=== PATIENT | female | born 1975 | race African-American/Black ===

== ENCOUNTER → 2017-10-11 | Outpatient (CLI) | payer SELFPAY ==
[2017-10-11 11:26] LABS: MEAN CELL VOLUME 86 fl (80.0-100.0); MEAN CORPUSCULAR HGB CONC 32 g/dl (33.0-37.0); MEAN PLATELET VOLUME 9.7 fl (7.4-10.4); PLATELET COUNT 209 K/mm3 (130-400); RED BLOOD COUNT 4.03 M/mm3 (4.10-5.30); REDCELL DISTRIBUTION WIDTH-CV 13.8 % (11.5-14.5)
[2017-10-11 11:27] LABS: HEMATOCRIT 34.8 % (37.0-47.0); HEMOGLOBIN 11.2 g/dl (12.5-16.0); MEAN CORPUSCULAR HEMOGLOBIN 28 pg (27.0-31.0)
[2017-10-11 11:40] LABS: ALBUMIN 4.2 gm/dL (3.5-5.0); BILIRUBIN,TOTAL 0.5 mg/dL (0.0-1.0); CALCIUM 9.2 mg/dL (8.4-10.2); CREATININE, serum 0.78 mg/dL (0.52-1.25); POTASSIUM 3.7 mmol/L (3.4-5.0); TOTAL PROTEIN 7.1 gm/dL (6.4-8.2)
[2017-10-11 11:57] LABS: THYROXINE (T4)-TOTAL 12.8 ug/dL (5.5-11.0)
[2017-10-11 12:10] LABS: THYROID STIMULATING HORMONE 0.315 uIU/mL (0.465-4.680)
== END ==
LOC: COL.CARD 10-04 10:00
DX: E03.9 Hypothyroidism, unspecified (principal); G40.109 Localization-related (focal) (partial) symptomatic epilepsy and epileptic syndromes with simple partial seizures, not intractable, without status epilepticus

== ENCOUNTER → 2017-10-23 | Outpatient (CLI) | payer SELFPAY | LOC: COL.CARD 12:51 | DX: G40.109 Localization-related (focal) (partial) symptomatic epilepsy and epileptic syndromes with simple partial seizures, not intractable, without status epilepticus (principal); E03.9 Hypothyroidism, unspecified ==

== ENCOUNTER → 2018-03-03 | Outpatient (CLI) | payer SELFPAY ==
[2018-03-03 15:17] LABS: BASO % 0.4 % (0.0-2.0); EOS # 0.2 (0.0-0.7); EOS % 3.2 % (0-4.0); GRAN # 2.9 (1.4-6.5); GRAN % 40.1 % (42.2-75.2); HEMOGLOBIN 11.2 g/dl (12.5-16.0); LYMPH # 3.4 (1.2-3.4); LYMPH % 47.7 % (20.0-51.0); MEAN CELL VOLUME 82 fl (80.0-100.0); MEAN CORPUSCULAR HEMOGLOBIN 27 pg (27.0-31.0); MEAN CORPUSCULAR HGB CONC 33 g/dl (33.0-37.0); MEAN PLATELET VOLUME 9.8 fl (7.4-10.4); MONO # 0.6 (0.1-0.6); MONO % 8.3 % (1.7-9.3); PLATELET COUNT 218 K/mm3 (130-400); RED BLOOD COUNT 4.16 M/mm3 (4.10-5.30); REDCELL DISTRIBUTION WIDTH-CV 13.1 % (11.5-14.5)
[2018-03-03 15:18] LABS: HEMATOCRIT 34.1 % (37.0-47.0)
[2018-03-03 16:08] LABS: THYROID STIMULATING HORMONE 6.03 uIU/mL (0.465-4.680)
== END ==
LOC: COL.LAB 14:31
DX: D50.9 Iron deficiency anemia, unspecified (principal); E03.9 Hypothyroidism, unspecified

== ENCOUNTER → 2018-05-06 | Outpatient (CLI) | payer SELFPAY ==
[2018-05-06 15:21] LABS: THYROID STIMULATING HORMONE 19.4 uIU/mL (0.465-4.680)
== END ==
LOC: ZCOL.LAB 13:03
PROVIDERS: Nurse Practitioner Family
DX: E03.9 Hypothyroidism, unspecified (principal)

== ENCOUNTER 2018-05-21 20:51 | Emergency (ER) | payer SELFPAY ==
[~2018-05-21] VITALS: Ht 152.4 cm; Wt 53.6 kg
[2018-05-21 20:54] VITALS: BP 126/74; TEMP 98.4
[2018-05-21] MEDS ORDERED: WELLBUTRIN SR150 M1 PO (21:10)
[2018-05-21] MEDS ORDERED: SYNTHROID0.175 MG PO (21:10)
[2018-05-21] MEDS ORDERED: KEPPRA 500MG500 MG PO (21:11)
[2018-05-21] MEDS ORDERED: NEURONTIN300 MG/CAP PO (21:11)
[2018-05-21] MEDS ORDERED: IRON TABLETS325 MG PO (21:11)
[2018-05-21 22:43] VITALS: PULSE 86
== END 2018-05-21 22:43 | disposition home or self-care (01) ==
LOC: COL.ER 20:51
DX: S01.511A Laceration without foreign body of lip, initial encounter (principal); E03.9 Hypothyroidism, unspecified; F17.210 Nicotine dependence, cigarettes, uncomplicated; F12.10 Cannabis abuse, uncomplicated; F14.10 Cocaine abuse, uncomplicated; Z88.6 Allergy status to analgesic agent; W01.198A Fall on same level from slipping, tripping and stumbling with subsequent striking against other object, initial encounter; Y92.009 Unspecified place in unspecified non-institutional (private) residence as the place of occurrence of the external cause

== ENCOUNTER → 2018-07-01 | Outpatient (CLI) | payer SELFPAY ==
[~2018-07-01] MED LIST: IRON TABLETS325 MG PO; KEPPRA 500MG500 MG PO; NEURONTIN300 MG/CAP PO; SYNTHROID0.175 MG PO; WELLBUTRIN SR150 M1 PO
[2018-07-01 17:09] LABS: BASO % 0.4 % (0.0-2.0); EOS # 0.2 (0.0-0.7); GRAN # 2.9 (1.4-6.5); GRAN % 50.7 % (42.2-75.2); HEMOGLOBIN 11.1 g/dl (12.5-16.0); LYMPH # 1.9 (1.2-3.4); LYMPH % 34.3 % (20.0-51.0); MEAN CELL VOLUME 84 fl (80.0-100.0); MEAN CORPUSCULAR HEMOGLOBIN 28 pg (27.0-31.0); MEAN CORPUSCULAR HGB CONC 33 g/dl (33.0-37.0); MEAN PLATELET VOLUME 10.7 fl (7.4-10.4); MONO # 0.6 (0.1-0.6); MONO % 11.2 % (1.7-9.3); PLATELET COUNT 213 K/mm3 (130-400); REDCELL DISTRIBUTION WIDTH-CV 12.8 % (11.5-14.5)
[2018-07-01 17:29] LABS: ALBUMIN 3.5 gm/dL (3.5-5.0); BILIRUBIN,TOTAL 0.3 mg/dL (0.0-1.0); CALCIUM 8.7 mg/dL (8.4-10.2); CREATININE, serum 0.71 mg/dL (0.52-1.25); POTASSIUM 4.1 mmol/L (3.4-5.0); TOTAL PROTEIN 6.4 gm/dL (6.4-8.2)
[2018-07-01 17:49] LABS: HEMATOCRIT 33.6 % (37.0-47.0)
[2018-07-01 17:57] LABS: THYROID STIMULATING HORMONE 1.52 uIU/mL (0.465-4.680)
== END ==
LOC: ZCOL.LAB 16:40
PROVIDERS: Nurse Practitioner Family
DX: E03.9 Hypothyroidism, unspecified (principal); R00.2 Palpitations

== ENCOUNTER → 2018-09-02 | Outpatient (CLI) | payer SELFPAY ==
[2018-09-02 18:00] LABS: BASO % 0.7 % (0.0-2.0); EOS # 0.1 (0.0-0.7); EOS % 1.9 % (0-4.0); GRAN # 1.8 (1.4-6.5); GRAN % 31.6 % (42.2-75.2); HEMOGLOBIN 11.5 g/dl (12.5-16.0); LYMPH # 3.2 (1.2-3.4); LYMPH % 55.2 % (20.0-51.0); MEAN CELL VOLUME 84 fl (80.0-100.0); MEAN CORPUSCULAR HEMOGLOBIN 28 pg (27.0-31.0); MEAN CORPUSCULAR HGB CONC 33 g/dl (33.0-37.0); MEAN PLATELET VOLUME 10.9 fl (7.4-10.4); MONO # 0.6 (0.1-0.6); MONO % 10.3 % (1.7-9.3); PLATELET COUNT 250 K/mm3 (130-400); RED BLOOD COUNT 4.14 M/mm3 (4.10-5.30); REDCELL DISTRIBUTION WIDTH-CV 12.7 % (11.5-14.5)
[2018-09-02 18:01] LABS: HEMATOCRIT 34.7 % (37.0-47.0)
== END ==
LOC: COL.LAB 17:49
PROVIDERS: Nurse Practitioner Family
DX: E03.9 Hypothyroidism, unspecified (principal); D64.9 Anemia, unspecified

== ENCOUNTER → 2018-09-25 | Outpatient (CLI) | payer SELFPAY | LOC: ZCOL.LAB 17:35 | DX: E03.9 Hypothyroidism, unspecified (principal) ==

== ENCOUNTER → 2019-01-06 | Outpatient (CLI) | payer SELFPAY ==
[2019-01-06 16:00] LABS: HEMOGLOBIN 10.7 g/dl (12.5-16.0)
[2019-01-06 16:01] LABS: HEMATOCRIT 31.9 % (37.0-47.0)
== END ==
LOC: ZLAB.FHCC 15:20 → ZCOL.LAB 15:20
PROVIDERS: Nurse Practitioner Family
DX: E03.9 Hypothyroidism, unspecified (principal); D64.9 Anemia, unspecified

== ENCOUNTER → 2019-07-21 | Outpatient (CLI) | payer SELFPAY ==
[2019-07-21 17:38] LABS: BASO % 0.4 % (0.0-2.0); EOS # 0.3 (0.0-0.7); EOS % 3.7 % (0-4.0); GRAN % 44.3 % (42.2-75.2); HEMOGLOBIN 10.8 g/dl (12.5-16.0); LYMPH # 2.8 (1.2-3.4); LYMPH % 41.6 % (20.0-51.0); MEAN CELL VOLUME 86 fl (80.0-100.0); MEAN CORPUSCULAR HEMOGLOBIN 28 pg (27.0-31.0); MEAN CORPUSCULAR HGB CONC 33 g/dl (33.0-37.0); MEAN PLATELET VOLUME 10.2 fl (7.4-10.4); MONO # 0.7 (0.1-0.6); MONO % 9.7 % (1.7-9.3); PLATELET COUNT 228 K/mm3 (130-400); RED BLOOD COUNT 3.85 M/mm3 (4.10-5.30); REDCELL DISTRIBUTION WIDTH-CV 12.8 % (11.5-14.5)
[2019-07-21 17:43] LABS: ALBUMIN 3.8 gm/dL (3.5-5.0); BILIRUBIN,TOTAL 0.1 mg/dL (0.0-1.0); CALCIUM 9.3 mg/dL (8.4-10.2); CREATININE, serum 0.9 (0.52-1.25); POTASSIUM 4.4 mmol/L (3.4-5.0); TOTAL PROTEIN 6.5 gm/dL (6.4-8.2)
[2019-07-21 18:14] LABS: THYROID STIMULATING HORMONE 16.1 uIU/mL (0.465-4.680)
== END ==
LOC: ZLAB.FHCC 17:13
PROVIDERS: Internal Medicine
DX: E03.9 Hypothyroidism, unspecified (principal); D64.9 Anemia, unspecified